=== PATIENT | female | born 1970 | race Caucasian/White ===

== ENCOUNTER 2017-10-28 13:57 | Emergency (ER) | payer SELFPAY ==
--- NOTE | 2017-10-28 14:51 | ER Document Report ---
HPI - HPI Patient complains to provider of: Cough Pain Level: 1 Context: Patient is a 47-year-old female complaining of a cough 1 month. Patient is concerned she may have black mold in her home due to all the recent rain. Patient denies any fever, her throat is scratchy. Cough is nonproductive. Patient denies chest pain or shortness of breath. No history of asthma or pneumonia. Associated Symptoms: None Exacerbated by: Denies Relieved by: Denies - ROS Systems Reviewed and Negative: Yes All other systems reviewed and negative Past Medical History - General Information source: Patient - Social History Smoking Status: Current Every Day Smoker Frequency of alcohol use: None Drug Abuse: None Lives with: Family Family History: Reviewed & Not Pertinent Vertical Provider Document - CONSTITUTIONAL Agree With Documented VS: Yes Exam Limitations: No Limitations - HEENT HEENT: Atraumatic, PERRLA - NECK Neck: Normal Inspection, Supple - RESPIRATORY Respiratory: Breath Sounds Normal, No Respiratory Distress - CARDIOVASCULAR Cardiovascular: Regular Rate, Regular Rhythm - GI/ABDOMEN Gastrointestinal: Abdomen Soft - MUSCULOSKELETAL/EXTREMETIES Musculoskeletal/Extremeties: MAEW, FROM, Non-Tender Course - Re-evaluation Re-evalutation: 10/28/17 15:22 History and physical are consistent with uncomplicated upper respiratory infection. There are no signs of pneumonia or respiratory distress. Patient is nontoxic. No respiratory difficulty. Recommended antihistamine/ decongestant for symptom control. Follow-up with primary care for further evaluation if symptoms persist. Home care, primary care follow-up in ED return precautions were discussed with patient. Patient is agreeable with plan is stable for discharge - Vital Signs Vital signs: Temp Pulse Resp BP Pulse Ox 98.8 F 78 18 111/73 98 10/28/17 14:02 10/28/17 14:02 10/28/17 14:02 10/28/17 14:02 10/28/17 14:02 Discharge - Discharge Clinical Impression: Cough URI (upper respiratory infection) Qualifiers: URI type: unspecified viral URI Qualified Code(s): J06.9 - Acute upper respiratory infection, unspecified Condition: Stable Disposition: HOME, SELF-CARE Instructions: Upper Respiratory Illness ([facility]) Additional Instructions: I recommend antihistamine/decongestant such as claritin and sudafed Prescription for Flonase and Tessalon Perles have been written for you for symptom control. Follow-up with your landlord regarding possible mold contamination. You can clean the mold with a bleach solution. Please wear a mask before cleaning. Prescriptions: Benzonatate [Tessalon Perle 100 mg Capsule] 200 mg PO Q8HP PRN #30 cap PRN Reason: Fluticasone Propionate [Flonase Allergy Relief] 2 spray NS DAILY #1 bottle
--- NOTE | 2017-10-28 16:02 | RADIOLOGY REPORT (SQ) ---
EXAM DESCRIPTION: CHEST 2 VIEWS COMPLETED DATE/TIME: 10/28/2017 3:27 pm REASON FOR STUDY: cough COMPARISON: None. EXAM PARAMETERS: NUMBER OF VIEWS: two views TECHNIQUE: Digital Frontal and Lateral radiographic views of the chest acquired. RADIATION DOSE: NA LIMITATIONS: none FINDINGS: LUNGS AND PLEURA: Question limited infiltrate in the apex of the left lower lobe. MEDIASTINUM AND HILAR STRUCTURES: No masses or contour abnormalities. HEART AND VASCULAR STRUCTURES: Heart normal size. No evidence for failure. BONES: No acute findings. HARDWARE: None in the chest. OTHER: No other significant finding. IMPRESSION: Question limited left lower lobe pneumonia. TECHNICAL DOCUMENTATION: JOB ID: [id number] [employer]- All Rights Reserved Reading location - IP/workstation name: [email or web address]
[2017-10-28 16:16] VITALS: BP 123/63
== END 2017-10-28 16:13 | disposition home or self-care (01) ==
LOC: ER 13:57
DX: J06.9 Acute upper respiratory infection, unspecified (principal); B97.89 Other viral agents as the cause of diseases classified elsewhere; R05 Cough; R09.89 Other specified symptoms and signs involving the circulatory and respiratory systems; F17.200 Nicotine dependence, unspecified, uncomplicated
CPT/HCPCS: 71046; 99283